=== PATIENT | male | born 1990 | race Caucasian/White ===

== ENCOUNTER → 2017-07-08 | Outpatient (CLI) | payer OTHER ==
[~2017-07-08] MED LIST: AMLO-110 PO; GADAVIST IV PRN; HYDR25TA4 PO; LISI20TA3 PO
--- NOTE | 2017-07-08 12:01 | DIAGNOSTIC IMAGING REPORT ---
MRI OF THE LUMBAR SPINE COMBO CLINICAL HISTORY: Chronic low back pain with right lower extremity radiculopathy. COMPARISON STUDY: Radiographs of the lumbar spine dated 07/27/2014. MRI of the lumbar spine dated 07/27/2013. TECHNIQUE: MRI of the lumbar spine is performed utilizing various T1 and T2-weighted sequences in the axial and sagittal planes. Contrast-enhanced sequences are acquired following the IV administration of 15 cc of Gadavist. FINDINGS: Lumbar spine: Vertebral body height and alignment are maintained throughout the lumbar spine. There is straightening of the lumbar lordosis. There are postoperative changes from laminectomy and posterior fusion seen from L4 through S1. Interpedicular screws are present at all levels. Susceptibility artifact from the arthritic hardware degrades assessment at these levels. The transverse processes are intact as imaged. No destructive bony lesion is seen. Intervertebral discs: There is evidence of discectomy at L4-L5 and L5-S1. Degenerative disc desiccation and mild loss of height is seen at the remaining lumbar levels. Spinal cord: The visualized spinal cord is normal in morphology and signal intensity. The conus medullaris terminates at the level of T12. No abnormal enhancement is identified on the postcontrast series. The nerve roots of the cauda equina are normal in morphology. L1-L2: Unremarkable. L2-L3: There is a small posterior disc bulge. There is minimal acquired compromise of the central canal at this level with a minimum AP diameter of 8 mm. There is also likely component of congenital stenosis at this level. L3-L4: There is a posterior disc herniation with a large inferiorly extruded fragment. The fragment is eccentric to the right and is located posterior to the L4 vertebral body. The fragment measures up to 2.0 cm, and is best seen on sagittal image 9. There is moderate to severe central canal stenosis at L3-L4 with a minimum AP diameter of 7 mm. Central canal stenosis is severe posterior to the L4 vertebral body with a minimum AP diameter of 7.5 mm. The disc herniation abuts the transiting bilateral nerve roots, right greater than left. The neural foramina are patent at this level. L4-L5: The central canal and neural foramina are grossly clear. Facet arthropathy is noted. L5-S1: The central canal and neural foramina are grossly clear. Soft tissues: Postoperative change is seen within the paraspinous musculature from L4 to S1. The paraspinous soft tissues are otherwise normal in appearance. No enhancing fluid collection or mass lesion is suggested on the postcontrast images. The partially visualized retroperitoneal structures are grossly unremarkable but incompletely evaluated. Sacrum: The visualized sacrum is normal in morphology and signal intensity. IMPRESSION: 1. There are postoperative changes from L4 to S1 spinal fusion as above. 2. There is a disc herniation with a large inferiorly extruded fragment slightly eccentric to the right at L3-L4. This causes moderate to severe central canal stenosis at this level. 3. Mild spondylotic change at additional levels as above. See discussion for detailed level by level analysis. 4. No destructive bony process is identified. 5. No mass lesion or abnormal enhancement is suggested on the postcontrast series. Dictated: 07/08/2017 11:44 AM Transcribed: 07/08/2017 12:00 PM Jean Pierre Electronically signed by: Melquiades Posada M.D. 07/08/2017 12:19 PM Dictated Date/Time: 07/08/2017 11:44 AM
== END | disposition home or self-care (01) ==
LOC: C.MRIBC 10:39
PROVIDERS: ATTEND Physician Assistant
DX: M51.26 Other intervertebral disc displacement, lumbar region (principal); M54.16 Radiculopathy, lumbar region; Z98.1 Arthrodesis status

== ENCOUNTER 2019-05-15 15:36 | Observation (INO) ==
[2019-05-15] MEDS ORDERED: ONDANSETRON INJ 2 MG/ML 2 ML VIAL IV STA (16:07)
[2019-05-15] MEDS ORDERED: ACETAMINOPHEN 1,000 MG/100 ML VIAL IV STA (16:07)
[2019-05-15] MEDS ORDERED: CEFEPIME 2,000 MG/20 ML VIAL IV STA (16:07)
[2019-05-15] MEDS ORDERED: SODIUM CHLORIDE 0.9% 1000ML 1,000 ML IV SCH (16:15)
--- NOTE | 2019-05-15 16:33 | XRay Report ---
XR chest 1V portable HISTORY: 29 years-old Male abd pain acute atypical chest pain with lower abdominal pain COMPARISON: Chest radiograph 12/27/2018 TECHNIQUE: Portable AP view of the chest FINDINGS: Cardiac mediastinal and hilar silhouettes are within normal limits. Eventration of the right hemidiap hragm. No pneumothorax, pleural effusion, focal airspace consolidation or overt pulmonary edema. Bone s of the chest appear grossly intact. IMPRESSION: No acute process. The above report was generated using voice recognition software. It may contain grammatical, syntax o r spelling errors. Electronically signed by: Eric De Guzman M.D. 05/15/2019 4:32 PM
--- NOTE | 2019-05-15 16:45 | Anesthesiology Consultation ---
Date of Service May 15, 2019 Assessment & Plan Chart Review Chart Review: Acceptable Risk for Surgery and Patient NOT seen in Pre Admission Testing Consults Requested none ASA ASA2E Proposed Anesthesia Anesthesia Type: General Risk / Benefits Reviewed With: PT / POA / Parent / Guardian, Accepts Plan and Informed Consent Obtained History Surgery Operation Date: 05/15/19 10:50 Proposed Procedures p Laparoscopic Appendectomy - Gonzalez Richard MD Height/Weight Height: 6 ft 2 in Weight: 123.5 kg Allergies Allergy/AdvReac Type Severity Reaction Status Date / Time No Known Allergies Allergy Verified 12/27/18 01:33 Medications Home Medications Medication Instructions Recorded Confirmed Last Taken hydrochlorothiazide 25 mg tablet 25 mg PO DAILY 07/14/18 12/27/18 12/26/18 lisinopril 40 mg tablet 40 mg PO DAILY 07/14/18 12/27/18 12/26/18 amlodipine 10 mg PO DAILY 12/27/18 12/27/18 12/26/18 metformin 2,000 mg PO HS 12/27/18 12/27/18 12/26/18 Active Medications Generic Name Dose Route Start Last Admin Trade Name Freq PRN Reason Stop Dose Admin Sodium Chloride 1,000 mls @ 999 mls/hr 05/15/19 16:15 05/15/19 16:45 Nss 1000ml IV 05/15/19 17:15 999 mls/hr .Q1H1M CONSUELO Administration Past Medical History Medical History Lumbar disc herniation (Chronic) L3-4 with large inferiorly extruded fragment measuring up to 2 cm causing moderate to severe central canal stenosis Obesity (Chronic) Lumbar radiculitis (Chronic) Former smoker (Chronic) Hypertension (Chronic) Lumbago (Chronic) Diabetes Exercise / Class Metabolic Activity II 4-5 Yardwork/Stairs/Walk up hill Past Family History Family History Other Diabetes Heart disease Hypertension Past Surgical History Surgical History History of lumbar fusion (Resolved) L4 through S1 by Dr. Mendoza Past Anesthesia History No Hx of Anesthesia Complications and No Family Hx of Anesthesia Complications History of PONV No Hx of PONV and No Hx of Motion Sickness Social History Smoking Status: Former smoker Hx Alcohol Use: Yes alcohol intake frequency: a few times a month Physical Exam Vital Signs Last Vital Signs Temp 37.1 C 05/15/19 15:50 Pulse 113 H 05/15/19 15:50 Resp 20 05/15/19 15:50 BP 108/70 05/15/19 15:50 Pulse Ox 96 05/15/19 15:50
[2019-05-15 17:01] LABS: Basophils # (auto) 0.01 K/uL (0-0.2); Eosinophils # (auto) 0.01 K/uL (0-0.5); Hematocrit (blood only) 42.3 % (42-52); Hemoglobin 14.5 g/dL (14.0-18.0); Immature Granulocytes # (auto) 0.07 K/uL (0.00-0.02); Immature Granulocytes % (auto) 0.3 %; Lymphocytes % (auto) 4.7 %; Mean Corpuscular Hemoglobin 30.9 pg (25-34); Mean Corpuscular Hgb Conc 34.3 g/dL (32-36); Mean Corpuscular Volume 90.2 fL (80-100); Mean Platelet Volume 10.1 fL (7.4-10.4); Monocytes # (auto) 1.95 K/uL (0.11-0.59); Monocytes % (auto) 9.2 %; Neutrophils # (auto) 18.07 K/uL (1.4-6.5); Neutrophils % (auto) 85.8 %; Platelet Count 291 K/uL (130-400); RDW Coefficient of Variation 13.2 % (11.5-14.5); RDW Standard Deviation 43.6 fL (36.4-46.3); Red Blood Count 4.69 M/uL (4.7-6.1); White Blood Count 21.11 K/uL (4.8-10.8)
--- NOTE | 2019-05-15 17:06 | History & Physical Report ---
Date of Service May 15, 2019 Assessment & Plan (1) Acute appendicitis: IVF IV abx to OR for lap appendectomy Present on Admission?: Yes (2) Hypertension: Con't meds Present on Admission?: Yes History of Present Illness Chief Complaint: Abdominal pain Primary Care Provider: Se Mota MD 29YO male with 3 days of abdominal pain mainly RLQ. He denies fevers of chills. He has had some constipation. He has also had some nausea but no vomiting. He denies urinary issues. A CT scan shows acute appendicitis. Allergies Allergy/AdvReac Type Severity Reaction Status Date / Time No Known Allergies Allergy Verified 12/27/18 01:33 Home Medications Home Medications Medication Instructions Recorded Confirmed Type hydrochlorothiazide 25 mg tablet 25 mg PO DAILY 07/14/18 12/27/18 History lisinopril 40 mg tablet 40 mg PO DAILY 07/14/18 12/27/18 History amlodipine 10 mg PO DAILY 12/27/18 12/27/18 History metformin 2,000 mg PO HS 12/27/18 12/27/18 History Past Med/Surg History Medical History Lumbar disc herniation (Chronic) L3-4 with large inferiorly extruded fragment measuring up to 2 cm causing moderate to severe central canal stenosis Obesity (Chronic) Lumbar radiculitis (Chronic) Former smoker (Chronic) Hypertension (Chronic) Lumbago (Chronic) Diabetes Surgical History History of lumbar fusion (Resolved) L4 through S1 by Dr. Mendoza Family History Other Diabetes Heart disease Hypertension Social History Preferred Language: Turkmen Communication Ability: Effective Visual Impairment: Limited Hearing Ability: Normal Beliefs That Will Affect Care: None marital status: Single Current Living Situation: Family current occupational status: unemployed Feels Safe at Home: Yes Smoking Status: Former smoker Hx Alcohol Use: Yes Review of Systems + anorexia; no fever and no chills no problem reported no problem reported no cough, no chest congestion and no dyspnea no chest pain and no dyspnea + abdominal pain, + bloating, + nausea and + change in stools; no vomiting no dysuria + back pain; no neck pain and no joint pain no problem reported no problem reported no problem reported no problem reported no problem reported Physical Exam Constitutional: well developed and well nourished Eyes: PERRL, conjunctivae normal, anicteric sclerae ENMT: external ear and nose normal, oropharynx normal Neck: trachea midline, no thyromegaly Thyroid: thyroid nontender Respiratory: no respiratory distress and no labored breathing Cardiovascular: RRR, no murmur, no edema Gastrointestinal (Abdomen): Inspection/Auscultation: abdomen normal to inspection and normal bowel sounds; abdomen not distended Percussion/Palpation: + abdomen tender and + guarding; abdomen not rigid and no hernia Musculoskeletal: Head/Neck/Chest: + head abnormal to inspection, normocephalic and head atraumatic Skin: no rashes, warm and dry Neurologic: awake; not confused Psychiatric: A+Ox3, euthymic affect Lymphatic: no lymphadenopathy ASA Classification ASA ASA2E Results & Data Vital Signs (Past 12 Hours) Vital Signs Temp Pulse Resp BP Pulse Ox 05/15/19 15:50 37.1 C 113 H 20 108/70 96 Code Status & VTE Plan VTE Prophylaxis Plan VTE Prophylaxis will be ordered: Yes
[2019-05-15 17:19] LABS: Albumin Level 4.2 gm/dl (3.4-5.0); Calcium 9.8 mg/dl (8.5-10.1); Creatinine Clr Calc Pharmacy 74.7 ml/min; Est GFR (African American) 50.1; Est GFR (Non-African American) 43.2; Magnesium 2.4 mg/dl (1.8-2.4); Potassium 4.1 mmol/L (3.5-5.1)
[2019-05-15 17:21] LABS: Bilirubin,Total 1.6 mg/dl (0.2-1); Globulin 4.4 gm/dl (2.5-4.0); Total Protein 8.6 gm/dl (6.4-8.2)
--- NOTE | 2019-05-15 17:23 | Emergency Department Note ---
Entered by Pantera Germain acting as a scribe for History of Present Illness General Chief complaint: GI Assessment Stated complaint: BLOCK IN BOWEL Time Seen by Provider: 05/15/19 16:00 Source: patient Limitations: no limitations History of Present Illness Onset (ago): day(s) 3 Location: abdomen Maximum Pain Intensity: 10 Current Pain Intensity: 0 (when still) Quality: + sharp Exacerbated By: + movement Associated symptoms: + fever/chills and + nausea/vomiting The patient is a 29 year old male who presents to the Emergency Room with complaints of sharp right lower abdominal pain starting 3 days ago. The patient states he had chills last night. The patient states his pain is 0/10 when he is not moving around and it is 10/10 when he is moving around. The patient states he had a bowel movement this morning and also passed gas this morning. He states he went to Dr. Mcdonnell and was told to get a CT of his abdomen. He states the CT showed that he had appendicitis and a bowel obstruction. He notes he vomited twice today. The patient denies having a history of heart problems, lung problems, kidney problems, and previous surgeries on his abdomen. He denies the pain radiating to his back. The patient notes he had diabetes and high blood pressure. "Impression 1. Thickening and inflammatory changes of the appendix. The appendix measures up to 1.2 cm in diameter. Also wall thickening and inflammatory change of several small bowel loops in the right lower quadrant with associated small bowel obstruction at the terminal ileum. The differential diagnosis for the findings above includes acute appendicitis with secondary enteritis (inflammatory, infectious, or ischemic etiologies) with secondary inflammatory changes of the appendix. No absess collections or pneumoperitoneum. 2. Hepatomegaly and moderate hepatic steatosis. Significant Abnormal Result: The information above was relayed directly by me by telephone to CORWIN MCDONNELL III on 05/15/2019 at 3:17 pm who expressed understanding The patient was sent to the emergency room for further management." Home Medications Home Medications Medication Instructions Recorded Confirmed Type hydrochlorothiazide 25 mg tablet 25 mg PO DAILY 07/14/18 12/27/18 History lisinopril 40 mg tablet 40 mg PO DAILY 07/14/18 12/27/18 History amlodipine 10 mg PO DAILY 12/27/18 12/27/18 History metformin 2,000 mg PO HS 12/27/18 12/27/18 History Allergies Allergy/AdvReac Type Severity Reaction Status Date / Time No Known Allergies Allergy Verified 12/27/18 01:33 Past Med/Surg History Medical History Lumbar disc herniation (Chronic) L3-4 with large inferiorly extruded fragment measuring up to 2 cm causing moderate to severe central canal stenosis Obesity (Chronic) Lumbar radiculitis (Chronic) Former smoker (Chronic) Hypertension (Chronic) Lumbago (Chronic) Diabetes Surgical History History of lumbar fusion (Resolved) L4 through S1 by Dr. Mendoza Family History Other Diabetes Heart disease Hypertension Social History Preferred Language: Sudanese Communication Ability: Effective Visual Impairment: Limited Hearing Ability: Normal Beliefs That Will Affect Care: None marital status: Single Current Living Situation: Family current occupational status: unemployed Feels Safe at Home: Yes Smoking Status: Former smoker Hx Alcohol Use: Yes Review of Systems See HPI for pertinent positives & negatives. and A total of 10 systems reviewed and were otherwise negative Physical Exam Vital Signs Vital Signs - 24 hr 05/15/19 15:50 05/15/19 16:40 05/15/19 17:02 Temperature 37.1 C Temperature Source Oral Sepsis Recent Fever Within 48 Hours No Sepsis Action Taken by Nursing No Action Required Pulse Rate 113 H Pulse Rate [Apical] Pulse Rate [Finger] 102 H Pulse Rhythm Regular Pulse Rhythm [Apical] Pulse Rhythm [Finger] Pulse Strength Normal Pulse Strength [Finger] Respiratory Rate 20 16 Respiratory Effort / Characteristics Non-Labored Non-Labored Respiratory Depth Normal Normal Respiratory Pattern Regular Regular Blood Pressure 108/70 Blood Pressure [Left Arm] 112/64 Blood Pressure Mean 82 Blood Pressure Mean [Left Arm] 80 Blood Pressure Position Sitting Blood Pressure Position [Left Arm] Sitting Pulse Oximetry 96 96 Oxygen Delivery Method Room Air Room Air Room Air 05/15/19 17:05 05/15/19 19:02 Temperature 37 C 37.0 C Temperature Source Oral Temporal Artery Scan Sepsis Recent Fever Within 48 Hours Sepsis Action Taken by Nursing Pulse Rate Pulse Rate [Apical] 105 H Pulse Rate [Finger] 99 H Pulse Rhythm Pulse Rhythm [Apical] Regular Pulse Rhythm [Finger] Regular Pulse Strength Pulse Strength [Finger] Normal Respiratory Rate 20 14 Respiratory Effort / Characteristics Non-Labored Spontaneous Non-Labored Spontaneous Respiratory Depth Normal Normal Respiratory Pattern Regular Regular Blood Pressure Blood Pressure [Left Arm] 112/52 L 88/58 L Blood Pressure Mean Blood Pressure Mean [Left Arm] 72 68 Blood Pressure Position Blood Pressure Position [Left Arm] Lying Pulse Oximetry 96 94 Oxygen Delivery Method Room Air Room Air GENERAL: Patient is in no acute distress. HEENT: No acute trauma, normocephalic atraumatic, mucous membranes moist, no nasal congestion, no scleral icterus. NECK: No stridor, no adenopathy, no meningismus, trachea is midline. LUNGS: Clear to auscultation bilaterally, no wheeze, no rhonchi, breath sounds equal. HEART: Mildly tachycardic with regular rhythm. No murmurs. ABDOMEN: Soft, bowel sounds positive, no hernias. RLQ peritonitis. EXTREMITIES: No cyanosis or edema, full range of motion of all the joints without pain or difficulty, no signs for acute trauma. NEUROLOGIC: Oriented x 3, no acute motor or sensory deficits, no focal weakness. SKIN: No rash, no jaundice. Mild diaphoresis. Course 1600: Patient's record was reviewed. "Impression 1. Thickening and inflammatory changes of the appendix. The appendix measures up to 1.2 cm in diameter. Also wall thickening and inflammatory change of several small bowel loops in the right lower quadrant with associated small bowel obstruction at the terminal ileum. The differential diagnosis for the findings above includes acute appendicitis with secondary enteritis (inflammatory, infectious, or ischemic etiologies) with secondary inflammatory changes of the appendix. No absess collections or pneumoperitoneum. 2. Hepatomegaly and moderate hepatic steatosis. Significant Abnormal Result: The information above was relayed directly by me by telephone to CORWIN MCDONNELL III on 05/15/2019 at 3:17 pm who expressed understanding The patient was sent to the emergency room for further management." 1604: The patient was evaluated in room C2B, and a complete history and physical examination were performed. 1623: I spoke with Dr. Richard - General Surgery. He states he will evaluate the patient. 1718: The patient was taken to surgery. Administered Medications Metronidazole (Flagyl) 500 mg in 100 mls @ 100 mls/hr IV Q8H [facility] Stop: 05/25/19 20:59 Last Admin: 05/15/19 21:59 Dose: 100 mls/hr Documented by: [id number] Ceftriaxone Sodium 2,000 mg/ (Dextrose) 70 mls @ 140 mls/hr IV Q24H [facility] Stop: 05/25/19 20:59 Last Infusion: 05/15/19 21:45 Dose: 0 mls/hr Documented by: [id number] Admin: 05/15/19 21:12 Dose: 140 mls/hr Documented by: [id number] Insulin Aspart (Novolog Flexpen) 0 units SC ACHS CONSUELO Stop: 06/14/19 20:59 Last Admin: 05/15/19 21:22 Dose: 1 units Documented by: [id number] Cosigned by: [id number] Discontinued Medications Bupivacaine HCl/Epinephrine Bitart (Sensorcaine/Epinephrine 0.5% Mpf 1:200,000) Confirm Administered Dose 30 ml .ROUTE .STK-MED ONE Stop: 05/15/19 17:51 Last Admin: 05/15/19 18:45 Dose: 20 ml Documented by: [id number] Fentanyl Citrate (Fentanyl Citrate) 50 mcg IV Q5M PRN PRN Reason: PACU Use Only-Pain Stop: 05/16/19 00:13 Last Admin: 05/15/19 19:17 Dose: 50 mcg Documented by: [id number] Fentanyl Citrate (Fentanyl Citrate) Confirm Administered Dose 100 mcg .ROUTE .STK-MED ONE Stop: 05/15/19 19:14 Last Admin: 05/15/19 21:04 Dose: Not Given Documented by: [id number] Hydromorphone HCl (Dilaudid) 0.5 mg IV Q5M PRN PRN Reason: PACU Use Only-Pain Stop: 05/16/19 00:13 Last Admin: 05/15/19 19:38 Dose: 0.5 mg Documented by: [id number] Acetaminophen (Ofirmev) 1,000 mg in 100 mls @ 400 mls/hr IV NOW STA Stop: 05/15/19 16:21 Last Infusion: 05/15/19 21:07 Dose: 0 mls/hr Documented by: [id number] Admin: 05/15/19 16:56 Dose: 400 mls/hr Documented by: [id number] Cefepime HCl (Maxipime) 2,000 mg in 20 mls @ 5 mls/min IV NOW STA; Protocol Stop: 05/15/19 16:10 Last Admin: 05/15/19 18:00 Dose: 5 mls/min Documented by: [id number] Sodium Chloride (Nss 1000ml) 1,000 mls @ 999 mls/hr IV .Q1H1M CONSUELO Stop: 05/15/19 17:15 Last Infusion: 05/15/19 21:06 Dose: 0 mls/hr Documented by: [id number] Admin: 05/15/19 16:45 Dose: 999 mls/hr Documented by: [id number] Ondansetron HCl (Zofran) 4 mg IV NOW STA Stop: 05/15/19 16:08 Last Admin: 05/15/19 16:56 Dose: 4 mg Documented by: [id number] Medical Decision Making Differential Diagnosis Differential Diagnosis: Appendicitis, pancreatitis, diverticulitis, bowel obstruction, bowel rupture, abscess, hernia, and UTI Medical Records Attestation: I reviewed the patient's medical records. Home Medications Current Medication List: was personally reviewed by me Laboratory Data Attestation: I reviewed the patient's lab results. Result diagrams: 05/15/19 16:44 05/15/19 16:44 Lab Results 05/15/19 05/15/19 05/15/19 Range/Units 16:44 16:44 19:08 WBC 21.11 H (4.8-10.8) K/uL RBC 4.69 L (4.7-6.1) M/uL Hgb 14.5 (14.0-18.0) g/dL Hct 42.3 (42-52) % MCV 90.2 (80-100) fL MCH 30.9 (25-34) pg MCHC 34.3 (32-36) g/dL RDW Std Deviation 43.6 (36.4-46.3) fL RDW Coeff of Chapis 13.2 (11.5-14.5) % Plt Count 291 (130-400) K/uL MPV 10.1 (7.4-10.4) fL Immature Gran % (Auto) 0.3 % Neut % (Auto) 85.8 % Lymph % (Auto) 4.7 % [place] % (Auto) 9.2 % Eos % (Auto) 0.0 % Baso % (Auto) 0.0 % Immature Gran # (Auto) 0.07 H (0.00-0.02) K/uL Neut # (Auto) 18.07 H (1.4-6.5) K/uL Lymph # (Auto) 1.00 L (1.2-3.4) K/uL [place] # (Auto) 1.95 H (0.11-0.59) K/uL Eos # (Auto) 0.01 (0-0.5) K/uL Baso # (Auto) 0.01 (0-0.2) K/uL Sodium 133 L (136-145) mmol/L Potassium 4.1 (3.5-5.1) mmol/L Chloride 97 L (98-107) mmol/L Carbon Dioxide 26 (21-32) mmol/L Anion Gap 10.0 (3-11) BUN 22 H (7-18) mg/dl Creatinine 2.00 H (0.6-1.4) mg/dl Est Cr Clr Drug Dosing 74.7 ml/min Est GFR ( Amer) 50.1 Est GFR (Non-Af Amer) 43.2 BUN/Creatinine Ratio 11.0 (10-20) Glucose 123 H (70-99) mg/dl POC Glucose 95 (70-99) Calcium 9.8 (8.5-10.1) mg/dl Magnesium 2.4 (1.8-2.4) mg/dl Total Bilirubin 1.6 H (0.2-1) mg/dl AST 14 L (15-37) U/L ALT 42 (12-78) U/L Alkaline Phosphatase 42 L (45-117) U/L Total Protein 8.6 H (6.4-8.2) gm/dl Albumin 4.2 (3.4-5.0) gm/dl Globulin 4.4 H (2.5-4.0) gm/dl Albumin/Globulin Ratio 1.0 (0.9-2) Lipase 136 (73-393) U/L Imaging Data Radiologist's Impression: Radiology results as stated below per my review and the radiologist's interpretation: XR chest 1V portable HISTORY: 29 years-old Male abd pain acute atypical chest pain with lower abdominal pain COMPARISON: Chest radiograph 12/27/2018 TECHNIQUE: Portable AP view of the chest FINDINGS: Cardiac mediastinal and hilar silhouettes are within normal limits. Eventration of the right hemidiaphragm. No pneumothorax, pleural effusion, focal airspace consolidation or overt pulmonary edema. Bones of the chest appear grossly intact. IMPRESSION: No acute process. The above report was generated using voice recognition software. It may contain grammatical, syntax or spelling errors. Electronically signed by: Eric De Guzman M.D. 05/15/2019 4:32 PM Blood Pressure Blood Pressure Findings: Normal blood pressure Blood Pressure Disposition: further management by hospitalist DIAN Narrative There is a significant leukocytosis at 21,000, this is consistent with infection. No anemia. Renal panel testing shows some acute kidney injury with a creatinine of 2. Bilirubin is mildly elevated at 1.6, no other liver enzyme elevations. Lipase is normal. Chest film does not show free air or pneumonia. I did review the outpatient CT scan from earlier today, appendicitis was noted with some surrounding bowel inflammation and possible early bowel obstruction. No abscess or appendix rupture noted. On exam, the patient appeared to have peritonitis in the right lower quadrant. He was mildly diaphoretic and slightly tachycardic. The patient was aggressively managed. He received IV saline, he was given IV Tylenol, IV Zofran and IV cefepime. I did speak with the on-call surgeon. Patient was seen in the ED by the surgery team and has been taken to the operating room for appendectomy. Patient is cadence re of his findings. He did not want anything stronger than Tylenol for pain. Impression & Plan Acute appendicitis, Dehydration, Vomiting, SBO (small bowel obstruction) Discharge Plan Visit Data *Final* Discharge Date/Time: 05/15/19 17:02 Chief Complaint: GI Assessment Stated Complaint: BLOCK IN BOWEL ED Provider: Melquiades Isaacs Discharge Problem: Acute appendicitis, Dehydration, Vomiting, SBO (small bowel obstruction) Patient Disposition: Still a Patient Discharge Instructions Interventions: ED Discharge Assessment Last Done: 05/15/19 17:02 Discharge Problem: Acute appendicitis Qualifiers: Acute appendicitis type: unspecified acute appendicitis type Qualified Code(s): K35.80 - Unspecified acute appendicitis Vomiting Qualifiers: Vomiting type: unspecified Vomiting Intractability: non-intractable Nausea presence: unspecified Qualified Code(s): R11.10 - Vomiting, unspecified The scribe's documentation has been prepared under my direction and personally reviewed by me in its entirety. I confirm that the note above accurately reflects all work, treatment, procedures, and medical decision making performed by me.
[2019-05-15] MEDS ORDERED: SUCCINYLCHOLINE CHLORIDE 20 MG/ML 10 ML VIAL ONE (17:50)
[2019-05-15] MEDS ORDERED: PROPOFOL IV EMULSION 10 MG/ML 20 ML VIAL IV ONE (17:50)
[2019-05-15] MEDS ORDERED: BUPIVACAINE/EPINEPHRINE 0.5% MPF 1:200,000 30 ML VIAL ONE (17:50)
[2019-05-15] MEDS ORDERED: fentaNYL citrate 100 MCG/2 ML VIAL ONE ×3 (17:50→19:13)
[2019-05-15] MEDS ORDERED: LIDOCAINE HCL 2% 2 ML VIAL/AMP(20MG/ML) INFIL ONE (17:50)
[2019-05-15] MEDS ORDERED: MIDAZOLAM HCL 1 MG/ML 2ML VIAL ONE (17:50)
[2019-05-15] MEDS ORDERED: HYDROmorphone INJ 2 MG/ML SYR/VIAL ONE (17:52)
[2019-05-15] MEDS ORDERED: ROCURONIUM BROMIDE 10 MG/ML 5 ML VIAL ONE (18:39)
--- NOTE | 2019-05-15 18:52 | Post Operative Brief Note ---
Immediate Post Op Note v1 Date of Surgery May 15, 2019 Pre & Post Diagnosis Operation Date: 05/15/19 10:50 Pre-Op Diagnosis: Acute appendicitis Post-Op Diagnosis: Acute appendicitis Procedure Operation Date: 05/15/19 10:50 Actual Procedures p Laparoscopic Appendectomy(Not Applicable) - Gonzalez Richard MD Surgeon Gonzalez Richard MD Residential Therapist none Estimated Blood Loss 15 Findings Consistent with Post-Op Diagnosis Anesthesia Type General Complications none
[2019-05-15] MEDS ORDERED: ONDANSETRON INJ 2 MG/ML 2 ML VIAL IV PRN ×2 (19:13→20:11)
[2019-05-15] MEDS ORDERED: ePHEDrine sulfate 50 MG/ML AMP IV PRN (19:13)
[2019-05-15] MEDS ORDERED: fentaNYL citrate 100 MCG/2 ML VIAL IV PRN (19:13)
[2019-05-15] MEDS ORDERED: ATROPINE SULFATE 0.1 MG/ML 10ML SYR IV PRN (19:13)
[2019-05-15] MEDS ORDERED: PROMETHAZINE HCL 12.5 MG in SODIUM CHLORIDE 0.9% 50 ML IV PRN (19:13)
[2019-05-15] MEDS ORDERED: HYDROmorphone INJ 2 MG/ML SYR/VIAL IV PRN (19:13)
[2019-05-15] MEDS ORDERED: PHARMACY GLYCEMIC MGMT CONSULT PRN (19:51)
[2019-05-15] MEDS ORDERED: MoRPHine SULFATE 2 MG/ML CARP IV PRN (20:11)
[2019-05-15] MEDS ORDERED: POLYETHYLENE (MIRALAX) 17 GM PACK PO PRN (20:11)
[2019-05-15] MEDS ORDERED: MoRPHine SULFATE 10 MG/ML CARP/VIAL IV PRN (20:11)
[2019-05-15] MEDS ORDERED: cefTRIAXone SODIUM 1,000 MG/50 ML BAG IV SCH (20:11)
[2019-05-15] MEDS ORDERED: PROMETHAZINE HCL 25 MG in SODIUM CHLORIDE 0.9% 50 ML IV PRN (20:11)
[2019-05-15] MEDS ORDERED: ACETAMINOPHEN 325 MG TAB PO PRN (20:11)
[2019-05-15] MEDS ORDERED: MoRPHine SULFATE 4 MG/ML 1 ML CARP\\VIAL IV PRN (20:11)
[2019-05-15] MEDS ORDERED: IBUPROFEN 200 MG TAB PO PRN (20:11)
[2019-05-15] MEDS ORDERED: OXYCODONE/ACETAMINOPHEN 5mg/325mg TAB PO PRN (20:11)
--- NOTE | 2019-05-15 20:25 | Anesthesiology Progress Note ---
Date of Service May 15, 2019 Anesthesia Post Procedure Vital Signs Vital Signs: Temp Pulse Pulse Pulse Resp BP BP 05/15/19 19:55 87 16 112/65 05/15/19 19:50 36.3 C L 85 12 112/62 05/15/19 19:40 83 10 L 105/52 L 05/15/19 19:30 90 13 90/59 L 05/15/19 19:20 93 H 12 82/57 L 05/15/19 19:10 102 H 18 100/54 L 05/15/19 19:02 37.0 C 105 H 14 88/58 L 05/15/19 17:05 37 C 99 H 20 112/52 L 05/15/19 16:40 102 H 16 112/64 05/15/19 15:50 37.1 C 113 H 20 108/70 Pulse Ox 05/15/19 19:55 98 05/15/19 19:50 99 05/15/19 19:40 97 05/15/19 19:30 93 05/15/19 19:20 88 L 05/15/19 19:10 90 05/15/19 19:02 94 05/15/19 17:05 96 05/15/19 16:40 96 05/15/19 15:50 96 Pain Intensity Right Lower Abdomen: Pain Intensity: 4 Transfer of Care Handoff Completed per policy Notes Mental Status: alert / awake / arousable and participated in evaluation Patient Amnestic to Procedure: Yes Nausea / Vomiting: adequately controlled Pain: adequately controlled Airway Patency, RR, SpO2: stable & adequate BP & HR: stable & adequate Hydration State: stable & adequate Anesthetic Complications: no major complications apparent and Pt Satisfied with anesthetic care
[2019-05-15] MEDS ORDERED: METFORMIN HCL ER 500 MG TABCR PO SCH (21:00)
[2019-05-15] MEDS: cefTRIAXone SODIUM 2,000 MG in DEXTROSE 5% 50 ML IV SCH (21:12)
[2019-05-15] MEDS: INSULIN ASPART 100 UNITS/ML 3 ML PEN SC SCH (21:22)
[2019-05-15] MEDS: metroNIDAZOLE 500 MG/100 ML BAG IV SCH (21:59)
--- NOTE | 2019-05-15 23:12 | Operative Report ---
DATE OF OPERATION: 05/15/2019 PREOPERATIVE DIAGNOSIS: Acute appendicitis. POSTOPERATIVE DIAGNOSIS: Acute appendicitis. PROCEDURE PERFORMED: Laparoscopic appendectomy. SURGEON: Gonzalez Richard MD RETAIL DELIVERY DRIVER: None. ANESTHESIA: General endotracheal with 0.5% Marcaine with epinephrine local, 20 mL. ESTIMATED BLOOD LOSS: 15 mL. SPECIMENS: Appendix sent for pathologic evaluation. FINDINGS: The patient had a large appendix with near phlegmon with some small bowel adhesed, but no perforation. INDICATION FOR PROCEDURE: This is a 29-year-old male who comes in with 3 days history of abdominal pain. Underwent a CT scan as an outpatient which showed an acute appendicitis and possible small-bowel obstruction. We talked to him in detail. We recommended a laparoscopic appendectomy. We talked about the risk of an open procedure, abscess, wound problems, infection, and conversion to open. He understands this and wished to proceed. DESCRIPTION OF PROCEDURE: The patient was taken to the OR and underwent excellent general endotracheal anesthesia. His abdomen was prepped and draped in normal sterile fashion. Transverse supraumbilical incision was made and a Veress needle was inserted with upward traction on the abdominal wall. Good pneumoperitoneum was then achieved to 15 mmHg pressure. A visualized 11 port was then placed. Good diagnostic lap was performed. He had obvious small bowel adhesed to his right lower quadrant with some fibrinous material, but no perforation. A 5 suprapubic, a 5 right upper quadrant, and a 12 left lower quadrant ports were placed in normal fashion. He was placed in head down and rolled to the left. Using a suction flying squad salesperson, the small bowel was broken up from his right lower quadrant. He had an obvious appendix with near phlegmon, but still could be identified without difficulty. The base of the appendix was also fairly normal in appearance. Using a Kerry clamp, the cecum was grasped and retracted superiorly. The tip of the appendix was then grasped and retracted inferiorly. A Harmonic scalpel was then used to take down the mesoappendix down to the base of the appendix. There was minimal blood loss. Once the appendix was freed to its base, a ESAU 60 vascular stapler was then placed and fired. The appendix was completely transected at its base. It was then brought out with an Endobag and sent for pathologic evaluation. Pneumoperitoneum was reestablished. The abdomen was then irrigated out with a liter of saline. Staple line appeared intact with no bleeding. There was no purulent material that could be identified. The irrigant was clear at the end of the case. Therefore, no drain was left. Ports were then removed. Pneumoperitoneum was decompressed. A 0 Vicryl was used to close the fascial defects at the 11 and 12 ports. A 0.5% Marcaine with epinephrine local was used to create a local field block. Interrupted Vicryl was used to close the skin. Steri-Strips and benzoin were was used to reinforce the incision. Sterile dressings were applied. The patient tolerated the procedure well with no complications, sent to postop recovery for a period of observation and will be discharged to his room once he meets criteria. I attest to the content of the Intraoperative Record and any orders documented therein. Any exception s are noted below.
[2019-05-16] MEDS ORDERED: INSULIN ASPART 100 UNITS/ML 3 ML PEN SC SCH
[2019-05-16] MEDS ORDERED: Nursing to Pharmacy Communication ONE (01:30)
[2019-05-16 01:43] LABS: Appearance Urine Clear (Clear); Bilirubin Urine Negative (Negative); Blood Urine Negative (Negative); Color Urine Yellow; Glucose Urine UA Negative (Negative); Ketones Urine Negative (Negative); Leukocyte Esterase Urine Negative (Negative); Nitrite Urine Negative (Negative); Protein Urine Negative (Negative); Specific Gravity Urine 1.034 (1.000-1.030); Urobilinogen Urine Negative (Negative); pH Urine 5.5 (4.5-7.5)
[2019-05-16] MEDS: LACTATED RINGER'S 1,000 ML IV SCH ×4 (01:57→20:44)
[2019-05-16] MEDS: metroNIDAZOLE 500 MG/100 ML BAG IV SCH ×3 (05:35→20:43)
[2019-05-16] MEDS: PANTOprazole 40 MG TAB PO SCH (05:36)
[2019-05-16 06:20] LABS: Basophils # (auto) 0.01 K/uL (0-0.2); Basophils % (auto) 0.1 %; Hematocrit (blood only) 35.2 % (42-52); Immature Granulocytes # (auto) 0.05 K/uL (0.00-0.02); Immature Granulocytes % (auto) 0.3 %; Lymphocytes % (auto) 6.8 %; Mean Corpuscular Hgb Conc 34.1 g/dL (32-36); Mean Platelet Volume 9.3 fL (7.4-10.4); Monocytes # (auto) 1.58 K/uL (0.11-0.59); Monocytes % (auto) 8.3 %; Neutrophils # (auto) 16.14 K/uL (1.4-6.5); Neutrophils % (auto) 84.5 %; Platelet Count 249 K/uL (130-400); RDW Coefficient of Variation 13.4 % (11.5-14.5); RDW Standard Deviation 44.6 fL (36.4-46.3); Red Blood Count 3.87 M/uL (4.7-6.1); White Blood Count 19.08 K/uL (4.8-10.8)
[2019-05-16 07:06] LABS: Estimated Average Glucose 117 mg/dl; Hemoglobin A1C 5.7 % (4.5-5.6)
[2019-05-16] MEDS: OXYCODONE/ACETAMINOPHEN 5mg/325mg TAB PO PRN ×3 (07:34→21:04)
--- NOTE | 2019-05-16 08:44 | Surgery Progress Note ---
Date of Service May 16, 2019 Assessment & Plan (1) Acute appendicitis: WBC 19 con't abx afebrile advance diet likley home in AM Present on Admission?: Yes Subjective POD #1 taking po well, advance diet no real flatus Review of Systems Constitutional: no fever and no chills Respiratory: no cough and no dyspnea Cardiovascular: no chest pain Gastrointestinal: + abdominal pain; no nausea and no vomiting Genitourinary: no dysuria Musculoskeletal: no back pain Integumentary: no rash Physical Exam Constitutional: well developed and well nourished Neck: trachea midline Respiratory: normal respiratory effort, lungs clear to auscultation Cardiovascular: RRR, no murmur, no edema Gastrointestinal (Abdomen): Inspection/Auscultation: abdomen normal to inspection and normal bowel sounds; abdomen not distended Percussion/Palpation: + abdomen tender and abdomen soft Musculoskeletal: Head/Neck/Chest: normocephalic and head atraumatic Skin: no rashes, warm and dry Neurologic: moves all extremities Results & Data Vital Signs (Past 12 Hours) Vital Signs Temp Pulse Resp BP Pulse Ox 05/16/19 07:12 36.6 C 84 16 108/65 97 05/16/19 04:23 36.7 C 66 16 94/56 L 94 05/15/19 23:05 36.8 C 96 H 16 103/61 95 05/15/19 21:08 36.5 C 114 H 20 111/68 98 (1) Acute appendicitis Acute appendicitis type: unspecified acute appendicitis type Qualified Code(s): K35.80 - Unspecified acute appendicitis
[2019-05-16] MEDS: AMLODIPINE BESYLATE 5 MG TAB PO SCH (09:11)
[2019-05-16] MEDS: LISINOPRIL 40 MG TAB PO SCH (09:11)
[2019-05-16] MEDS: hydroCHLOROthiazide 25 MG TAB PO SCH (09:12)
[2019-05-16] MEDS: INSULIN ASPART 100 UNITS/ML 3 ML PEN SC SCH ×4 (09:47→21:01)
--- NOTE | 2019-05-16 11:31 | Pharmacy Report ---
Glycemic Control Consultation - Date of Service May 16, 2019 - Scope Scope: Glycemic Pharmacist consulted by Dr Richard on 05/15/19 for glycemic control and to write orders per [facility] inpatient glycemic control protocol - Objective Weight: 150.593 kg Accuchecks BSG (last 24hrs): 05/15/19 05/15/19 05/15/19 16:44 19:08 21:04 Glucose 123 H POC Glucose 95 147 H 05/15/19 05/16/19 23:40 08:07 Glucose POC Glucose 130 H 111 H Laboratory Data (last 24hrs): 05/15/19 16:44 Potassium 4.1 Carbon Dioxide 26 Anion Gap 10.0 Creatinine 2.00 H Est Cr Clr Drug Dosing 74.7 HbA1c: Hemoglobin A1c 5.7 % (4.5-5.6) H 05/16/19 06:01 - Recent Pertinent Medications Outpatient Anti-diabetic Regimen: * Metformin 2g HS * A1c = 5.7 % 05/16/19 - Assessment & Plan Assessment & Plan: ASSESSMENT: * Pt p/w appendicitis. Diet was advanced to clears this AM. Minimal pharmacist glycemic interventions are necessary. See plan detailed below. PLAN FOR INPATIENT GLYCEMIC CONTROL: * Holding outpatient oral diabetes medications * Basal insulin * none indicated * Bolus insulin * NovoLog per scale ACHS or Q6hrs while NPO * Goal Range: Low 110 mg/dL - High 140 mg/dL * Correction Factor: 20 mg/dL/unit * Nutritional / Prandial insulin per carb ratio of 1 unit per 6 grams CHO consumed * Please note that the plan above was derived based on current level of insulin resistance and hospital stress. These recommendations are appropriate for inpatient admission only. Plan of care upon discharge will need to be reassessed to avoid potential outpatient hypo/hyperglycemia. Thank you.
[2019-05-16] MEDS: cefTRIAXone SODIUM 2,000 MG in DEXTROSE 5% 50 ML IV SCH (20:05)
[2019-05-17 05:53] LABS: Basophils # (auto) 0.03 K/uL (0-0.2); Basophils % (auto) 0.3 %; Eosinophils # (auto) 0.26 K/uL (0-0.5); Eosinophils % (auto) 2.4 %; Hemoglobin 11.5 g/dL (14.0-18.0); Immature Granulocytes # (auto) 0.04 K/uL (0.00-0.02); Immature Granulocytes % (auto) 0.4 %; Lymphocytes # (auto) 2.68 K/uL (1.2-3.4); Lymphocytes % (auto) 24.4 %; Mean Corpuscular Hemoglobin 30.3 pg (25-34); Mean Corpuscular Hgb Conc 32.9 g/dL (32-36); Mean Corpuscular Volume 92.3 fL (80-100); Mean Platelet Volume 9.8 fL (7.4-10.4); Monocytes # (auto) 1.32 K/uL (0.11-0.59); Neutrophils # (auto) 6.67 K/uL (1.4-6.5); Neutrophils % (auto) 60.5 %; Platelet Count 232 K/uL (130-400); RDW Coefficient of Variation 13.1 % (11.5-14.5); RDW Standard Deviation 44.3 fL (36.4-46.3); Red Blood Count 3.79 M/uL (4.7-6.1)
[2019-05-17] MEDS: LACTATED RINGER'S 1,000 ML IV SCH (05:54)
[2019-05-17] MEDS: metroNIDAZOLE 500 MG/100 ML BAG IV SCH (05:54)
[2019-05-17] MEDS: PANTOprazole 40 MG TAB PO SCH (05:59)
[2019-05-17] MEDS: OXYCODONE/ACETAMINOPHEN 5mg/325mg TAB PO PRN ×2 (07:08→11:15)
--- NOTE | 2019-05-17 08:34 | Surgery Progress Note ---
Date of Service May 17, 2019 Assessment & Plan (1) Acute appendicitis: discharge Present on Admission?: Yes Subjective doing well no fevers eating well Review of Systems Constitutional: no fever and no chills Cardiovascular: no chest pain Gastrointestinal: + abdominal pain; no nausea and no vomiting Genitourinary: no dysuria Physical Exam Constitutional: WD/WN, vitals as above Neck: trachea midline Respiratory: normal respiratory effort, lungs clear to auscultation Cardiovascular: RRR, no murmur, no edema Gastrointestinal (Abdomen): Inspection/Auscultation: normal bowel sounds; abdomen not distended Percussion/Palpation: + abdomen tender Skin: no rashes, warm and dry Results & Data Vital Signs (Past 12 Hours) Vital Signs Temp Pulse Resp BP Pulse Ox 05/17/19 06:47 36.6 C 87 18 159/79 H 100 05/16/19 22:55 36.4 C L 69 16 132/79 99 (1) Acute appendicitis Acute appendicitis type: unspecified acute appendicitis type Qualified Code(s): K35.80 - Unspecified acute appendicitis
[2019-05-17] MEDS: LISINOPRIL 40 MG TAB PO SCH (09:13)
[2019-05-17] MEDS: hydroCHLOROthiazide 25 MG TAB PO SCH (09:14)
[2019-05-17] MEDS: AMLODIPINE BESYLATE 5 MG TAB PO SCH (09:14)
[2019-05-17] MEDS: INSULIN ASPART 100 UNITS/ML 3 ML PEN SC SCH (09:17)
--- NOTE | 2019-05-20 14:25 | Discharge Summary ---
Date of Service May 20, 2019 Admission HPI Per Admitting Provider 29YO male with 3 days of abdominal pain mainly RLQ. He denies fevers of chills. He has had some constipation. He has also had some nausea but no vomiting. He denies urinary issues. A CT scan shows acute appendicitis. Principal Diagnosis acute appendicitis Discharge Data Allergies Allergy/AdvReac Type Severity Reaction Status Date / Time No Known Allergies Allergy Verified 12/27/18 01:33 Procedures Performed Operation Date: 05/15/19 10:50 Actual Procedures p Laparoscopic Appendectomy(Not Applicable) - Gonzalez Richard MD Hospital Course (1) Acute appendicitis: Patient was take to operating room for laparoscopic appendectomy possible open. Patient found to have acute appendicitis with phlegmon and small bowel adhesed to appendix however no perforation or abscess. Patient tolerated procedure well and was transferred to recovery room then to medical/surgical floor for postoperative care. He was started on clear liquids and diet advanced as tolerated. Started on IV Flagyl and Ceftriaxone. Labs were followed. WBC from 21K --> 11K. Afebrile. Pain controlled throughout stay. Patient was discharged home in stable condition. Total Time Total Time Spent Total Time Spent (In Minutes): 20 Total Time Includes: Examination of the Patient, Discharge Planning and Medication Reconciliation Discharge Plan Discharge Items Patient Disposition: Home - Self-Care Reason For Visit: APPENDICITIS Discharge Diagnosis: appendicitis Discharge Goals: Improve function Activity: Per 'Additional Instructions' section Lifting: No more than 25 pounds Bathing: No limitations Sexual Activity: When tolerated Exercise/Sports: Wait until after follow-up appointment Driving/Machine Use: Resume 3 days after discharge Weightbearing: Full weightbearing Non-emergency contact: Primary Care Provider and Surgeon Call non-emergency contact if: your pain is worsening, your temperature is above 101.5 and your wound pain has increased Follow-up/Referrals: Se Mota MD [Primary Care Provider] - Diet: Regular Addtl Provider Instructions: follow-up in my clinic in 2 weeks Prescriptions: New oxycodone-acetaminophen [Percocet] 5-325 mg Tablet 1 tab PO Q4H PRN (Reason: pain) Qty: 20 RF: 0 Continued hydrochlorothiazide 25 mg tablet 25 mg PO DAILY RF: 0 lisinopril 40 mg tablet 40 mg PO DAILY RF: 0 amlodipine 10 mg tablet 10 mg PO DAILY RF: 0 metformin 500 mg Tablet Extended Release 24 Hr 2,000 mg PO HS RF: 0 Stand-Alone Forms: [employer], [facility] [employer]/Other Patient Handouts: DVT Discharge Orders: Discharge Order (Routine); Ordered 05/17/19 Ordered By: Gonzalez Richard Admission Data Admit Date/Time: 05/15/19 19:10 Attending Provider: Gonzalez Richard Admit Provider: Gonzalez Richard Primary Care Provider: Se Mota Service: Surgical Services Other Interventions: Discharge Summary Assessment (RN) Last Done: 05/17/19 10:00 DC Date/Time DO NOT enter until pt leaves facility: 05/17/19 12:59
== END 2019-05-17 12:59 | disposition home or self-care (01) ==
LOC: ED 15:36 → 3E 17:02 → ASU 17:02